=== PATIENT | female | born 1990 | race Hispanic/Latino ===

== ENCOUNTER 2023-12-09 20:48 | Emergency (ER) | payer BC ==
[~2023-12-09] VITALS: Ht 162.6 cm; Wt 127.0 kg
[2023-12-09] MEDS: DIPH,PERTUSS(ACELL),TET VAC/PF 0.5 ML VIAL IM ONE (23:21)
[2023-12-09] MEDS: NEOMY SULF/BACITRA/POLYMYXIN B 1 EACH PACKET TP ONE (23:22)
[2023-12-09 23:26] VITALS: BP 166/84; PULSE 86; RESP 18; TEMP 98.2; O2SAT 96
== END 2023-12-09 23:33 | disposition home or self-care (01) ==
LOC: EDH 20:48
DX: S91.312A Laceration without foreign body, left foot, initial encounter (principal); J45.909 Unspecified asthma, uncomplicated; Z90.49 Acquired absence of other specified parts of digestive tract; Z98.890 Other specified postprocedural states; W25.XXXA Contact with sharp glass, initial encounter; Y93.89 Activity, other specified; Y92.89 Other specified places as the place of occurrence of the external cause; Y99.8 Other external cause status
CPT/HCPCS: 73630; 90471; 90715